=== PATIENT | female | born 1980 | race Caucasian/White ===

== ENCOUNTER 2021-03-21 08:36 | Emergency (ER) | payer OTHER ==
[~2021-03-21] VITALS: Ht 167.6 cm; Wt 99.8 kg
[~2021-03-21 08:36] MED LIST: PREDNISONE20 MG PO; PROVENTIL HFA6.7 GM INH
== END 2021-03-21 10:45 | disposition home or self-care (01) ==
LOC: ED 08:36
DX: S20.212A Contusion of left front wall of thorax, initial encounter (principal); S69.92XA Unspecified injury of left wrist, hand and finger(s), initial encounter; W01.198A Fall on same level from slipping, tripping and stumbling with subsequent striking against other object, initial encounter; F17.200 Nicotine dependence, unspecified, uncomplicated; Z88.2 Allergy status to sulfonamides; Z88.5 Allergy status to narcotic agent; Z88.8 Allergy status to other drugs, medicaments and biological substances
CPT/HCPCS: 71101; 84703; 99283-25

== ENCOUNTER 2021-06-06 13:20 | Emergency (ER) | payer OTHER ==
[~2021-06-06] VITALS: Ht 167.6 cm; Wt 99.8 kg
[2021-06-06] MEDS ORDERED: CEPHALEXIN500 M1 PO (15:32)
== END 2021-06-06 15:43 | disposition home or self-care (01) ==
LOC: ED 13:20
DX: L03.116 Cellulitis of left lower limb (principal); F17.200 Nicotine dependence, unspecified, uncomplicated; Z88.2 Allergy status to sulfonamides; Z88.5 Allergy status to narcotic agent
CPT/HCPCS: 80053; 85025; 93971; 96374; 99284-25; J0696; J7030

== ENCOUNTER 2021-06-21 17:57 | Inpatient (IN) | payer OTHER ==
[~2021-06-21] VITALS: Ht 167.6 cm; Wt 68.1 kg
[~2021-06-21 17:57] MED LIST changes: +CEPHALEXIN500 M1 PO
--- OUTSIDE RECORDS SUMMARY | 2021-06-21 18:04 | XMS ---
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 - 2 Visits in 30 Days CARE PROVIDERS There are no care providers on record at this time. Tru has no Care Guidelines for this patient. [facility] (12 MO.) [facility] NOTE: Visits indicate total known visits. ED/C VISIT TRACKING (12 MO.) 06/21/2021 17:[address] [facility] [place] TYPE: Emergency COMPLAINT: - LT FOOT PAIN 06/06/2021 13:21 [facility] [place] TYPE: Emergency COMPLAINT: - L ANKLE SWOLLEN HOT DIAGNOSES: - Cellulitis of left lower limb - Allergy status to sulfonamides - Local infection of the skin and subcutaneous tissue, unspecified - Allergy status to narcotic agent - Nicotine dependence, unspecified, uncomplicated 03/21/2021 08:37 [facility] [place] TYPE: Emergency COMPLAINT: - L WRIST PAIN DIAGNOSES: - Allergy status to narcotic agent - Contusion of left front wall of thorax, initial encounter - Unspecified injury of left wrist, hand and finger(s), initial encounter - Nicotine dependence, unspecified, uncomplicated - Allergy status to sulfonamides - Allergy status to other drugs, medicaments and biological substances - Pleurodynia - Fall on same level from slipping, tripping and stumbling with subsequent striking against other object, initial encounter INPATIENT VISIT TRACKING (12 MO.) No inpatient visits to display in this time frame [email or web address]
--- NOTE | 2021-06-22 00:20 | NUR ---
PATIENT ARRIVED TO THE FLOOR VIA STRETCHER. PATIENT WAS ABLE TO AMBULATE FROM SRETCHER TO BED WITH NO ASSISTANCE. PATIENTS LLE ELEVATED ON PILLOWS. PATIENTS REDNESS ON LLE WAS OUTLINED IN THE ED. PATIENTS ADMISSION COMPLETED. VITLAS TAKEN AND RECORDED. PATIENTS IV INFUSING PER ORDER. PATIENT RATES PAIN AT A 3/10, AND DENIES THE NEED FOR PAIN MEDICATION AT THIS TIME. CALL LIGHT IN REACH.
--- NOTE | 2021-06-22 00:56 | NUR ---
RECEIVED CALL FROM LAB. PATIENT IS COVID POSITIVE. PLACED PATIENT IN APPROPRIATE PRECAUTIONS. INFORMED PATIENT. PATIENT DENIES ANY QUESTIONS. SANDWICH PROVIDED. NO FURTHER NEEDS NOTED. CALL LIGHT IN REACH.
--- NOTE | 2021-06-22 01:36 | NUR ---
PATIENT ASSISTED TO THE RESTROOM A SBA. PATIENT WAS ABLE TO VOID. PATIENT IS BACK IN BED RESTING. PATIENT RATES PAIN AT A 2/10. PATIENT DENIES THE NEED FOR PAIN MEDICATION. PATIENT DENIES ANY FURTHER NEEDS. CALL LIGHT IN REACH.
--- NOTE | 2021-06-22 03:57 | NUR ---
PATIENT IS RESTING IN BED WITH EYES CLSOED, RR 18. CALL LIGHT IN REACH.
--- NOTE | 2021-06-22 05:13 | NUR ---
VITALS TAKEN AND RECORDED. INTAKE AND OUPUT RECORDED. IV INFUSING PER ORDER. ASSESMENT COMPLETED. PATIENT RATES PAIN AT A 2/10. PATIENT DENIES THE NEED FOR PAIN MEDICATION AT THIS TIME. CALL LIGHT IN REACH. NO FURTHER NEEDS NOTED. CALL LIGHT IN REACH.
--- NOTE | 2021-06-22 07:47 | NUR ---
CARE TRANSFER REPORT FROM MELISSA LANCASTER. PT ADMITTED LAST NIGHT. SHE TESTED POSITIVE FOR COVID, NOT SYMPTOMATIC. OPEN AREAS ON LEFT LEG AND RED AREA OUTLINED.
--- NOTE | 2021-06-22 08:59 | NUR ---
Vancomycin per pharmacy. Patient was given vancomycin 2000mg on admit, follow with 1250mg q 12 hrs. Pharmacy will determine timing and order trough level draw
--- NOTE | 2021-06-22 10:27 | NUR ---
PT AGREEABLE TO SHOWER AFTER BREAKFAST. PAIN IS TOLERABLE, TYLENOL PRN GIVEN TO MAINTAIN PAIN TOLERANCE FOR SHOWER ACTIVITY.
--- NOTE | 2021-06-22 11:30 | NUR ---
Spoke with Diana by phone as she is + for covid. She believes she had covid at the beginning of Jun as she lost her taste and smell at that time, but did not feel ill. She lives in an apartment with two of her children. She does not have a license. Her mom recently passed and left her a car, she is considering getting her starting gate driver's license. Gave her the phone number for [employer] transportation. Pt states it has been very painful to walk, she is not using any DME and unsure if she will need. I will follow up with her tomorrow. Pt plans on dc to home when cleared medically. Children are 10 and 15 and will assist her. I will change emergency contact as it is listed as her mom to her oldest daughter Kiara Vaughn [phone].
--- NOTE | 2021-06-22 11:51 | NUR ---
PATIENT UP TO SHOWER, THIS SUCTION DRUM DRIER OPERATOR IN ROOM FOR ASISTANCE. LINENS CHANGED, ANISHA GRIMES IN TO CLEANSE LEFT LEG WOUND. VITALS AND I&OS CHARTED. NO OTHER NEEDS AT THIS TIME
--- NOTE | 2021-06-22 13:06 | NUR ---
PT RESTING IN BED, NEW IV STARTED BY CONY LANCASTER. NO NEW ISSUES. FINISHED SHOWER NEW DRESSINGS TO LLE AFTER ABX SOAP WASH.
--- NOTE | 2021-06-22 14:11 | NUR ---
Patient has not recieved lunch yet and is getting her lunch ordered now independently. Vitals and I&Os are done. Call light is in reach and IV has stopped. RN has been notified.
--- NOTE | 2021-06-22 14:30 | NUR ---
PT REQUEST RIGHT AC IV TO BE REMOVED IT IS UNCOMFORTABLE IN THE BEND OF ARM. IV REMOVED WNL NO ISSUES. PT SITTING UP IN BED FINISHED EATING LUNCH. AFTERNOON ASSESSMENT COMPLETE.
--- NOTE | 2021-06-22 15:53 | NUR ---
LLE, GREAT IMPROVEMENT OVER THIS LAST SHIFT, REDNESS RECEDING FROM OUTLINE, AND REDNESS MORE LIGHT NOW IN COMPARISON FROM THIS AM. PT ADMINISTERED TYLENOL FOR PAIN AVAILABLE
--- NOTE | 2021-06-22 18:39 | NUR ---
LLE IMPROVED OVER SHIFT, REDNESS RECEDING AND LESS RED. DARKENS WHEN SHE STANDS. TYLENOL PRN OVER SHIFT FOR PAIN, TORDOL AVAILABLE FOR TONIGHT. SHE HAS HAD SHOWER, WITH ABX SOAP CLEANS TO LLE. SHE HAS HAD GOOD APPETITE AND HAS BEEN AFEBRILE. CULTURE PENDING FROM LLE WOUND TAKEN IN E.D., MRSA NASAL SWAB PENDING FROM THIS AM. POSSIBLE DISCHARGE TOMORROW PER
--- NOTE | 2021-06-22 19:59 | NUR ---
RECEIVED REPORT FROM DAY SHIFT RN. PATIENT IS RESTING IN BED WATCHING TV. NO NEEDS NOTED. CALL LIGHT IN REACH.
--- NOTE | 2021-06-22 22:17 | NUR ---
PATIENT ASSISTED TO THE RESTROOM A SBA. PATIENT WAS ABLE TO VOID. PATIENT IS BACK IN BED RESTING. PATIENTS LLE ELEVATED ON A PILLOW. REDNESS IN LLE HAS IMPROVED. PATIENTS LLE IS ONLY WARM TO THE TOUCH NOT HOT LIKE PREVIOUS SHIFT. PATIENT RATES PAIN AT A 5/10 AND DESCRIBES IT AN "ACHE". PATIENTS SCHEDULED MEDICATIONS GIVEN PER ORDER. IV INFUSING PER ORDER. VITALS TAKEN AND RECORDED. INTAKE AND OUTPUT RECORDED. PATIENT DENIES ANY FURTHER NEEDS. CALL LIGHT IN REACH.
--- NOTE | 2021-06-22 22:32 | NUR ---
PATIENT PROVIDED WITH SANDWICH BOX. PATIENT DENIES ANY FURTHER NEEDS. CALL LIGHT IN REACH.
--- NOTE | 2021-06-22 23:36 | NUR ---
PATIENTS WATER REFILLED. PATIENT DENIES ANY NEEDS. CALL LIGHT IN REACH.
--- NOTE | 2021-06-23 02:15 | NUR ---
IN TO ASSIST PT TO THE TOILET, SBA WITH IV POLE, PT BACK TO BED, NO FURTHER NEEDS AT THIS TIME
--- NOTE | 2021-06-23 03:22 | NUR ---
PATIENT GIVEN PRN TYLENOL PER ORDER FOR AN "ACHE" IN HER LLE. LLE REMAINS ELEVATED ON A PILLOW. FRESH ICE WATER PROVIDED. PATIENT DENIES ANY FURTHER NEEDS. CALL LIGHT IN REACH.
--- NOTE | 2021-06-23 05:39 | NUR ---
PATIENTS BLOOD DRAWN AND SENT TO LAB. VITALS TAKEN AND RECORDED. INTKAE AND OUTPUT RECORDED. PATIENT DENIES ANY PAIN AT THIS TIME. PATIENT DENIES ANY FURTHER NEEDS. CALL LIGHT IN REACH.
--- NOTE | 2021-06-23 07:45 | NUR ---
REPORT RECEIVED. PT IN BED WITH EYES CLOSED. RESPIRATIONS EQUAL AND NONLABORED. CALL LIGHT IN REACH.
--- NOTE | 2021-06-23 09:22 | NUR ---
MED REC COMPLETE
--- NOTE | 2021-06-23 09:48 | NUR ---
PATIENT SITTING UP IN BED WATCHING TV, BREAKFAST AT BESIDE. VITALS AND I&O'S CHARTED. PATIENT SAID SHOWER MAYBE LATER, WILL CHECK BACK IN. CALL LIGHT IN REACH. NO FURTHER NEEDS AT THIS TIME.
--- NOTE | 2021-06-23 10:48 | NUR ---
ASSESSMENT COMPLETED. PT SITTING IN BED WATCHING TV. DENIES PAIN AT THIS TIME. CALL LIGHT IN REACH.
--- NOTE | 2021-06-23 13:41 | NUR ---
ROUNDED ON PT. WASH DONT TO LEFT LOWER EXTREMITIY. ALLEVYNS PLACED ON THREE UCLERS. REDNESS IS DECREASING. LOTION APPLIEDTO REST OF LEG. PT TOLERATED WELL. CALL LIGHT IN REACH.
--- NOTE | 2021-06-23 14:25 | NUR ---
PATIENT IN BED RESTING AND WATCHING TV. VITALS AND I&O'S CHARTED. CALL LIGHT IN REACH. NO FURTHER NEEDS AT THIS TIME.
--- NOTE | 2021-06-23 14:58 | NUR ---
LAB CALLED THIS AM IN REGARDS TO CULTURES, NO FAX, CALLED AT THIS TIME, INFORMED THAT STILL PENDING AT THIS TIME.
--- NOTE | 2021-06-23 17:26 | NUR ---
IV INFILTRATED WITH 5 ML OF VANCOMYCIN. IV DC'D AND REPLACED IN RIGHT FOREARM. HEAT PACK PROVIDED TO SITE. CALL LIGHT IN REACH.
--- NOTE | 2021-06-23 18:18 | NUR ---
IN TO ASSESS ARM. SWELLING DECREASING, NO WARMTH PRESENT. ICE PACK PROVIDED. DENEIS FURTHER NEEDS.
--- NOTE | 2021-06-23 18:23 | NUR ---
PATIENT SITTING UP IN BED PLAYING ON PHONE. VITALS AND I&O'S CHARTED. CALL LIGHT IN REACH. NO FURTHER NEEDS AT THIS TIME.
--- NOTE | 2021-06-23 19:36 | NUR ---
RECEIVED REPORT FROM DAY SHIFT RN. PATIENT IS RESTING IN BED WATCHING TV. PATIENT DENIES ANY NEEDS. CALL LIGHT IN REACH.
--- NOTE | 2021-06-23 21:04 | NUR ---
PATIENT ASSESMENT COMPLETED. VITALS TAKEN AND RECORDED. INTAKE AND OUPUT RECORDED. PATIENT HAD A BM. PATIENT REPORTS A 3/10 PAIN IN HER LLE. PATIENT DENIES THE NEED FOR PAIN MEDICATION AT THIS TIME. PATIENTS SCHEDULED MEDICATIONS GIVEN PER ORDER. PATIENT DENIES ANY FURTHER NEEDS. IV INFUSING PER ORDER. CALL LIGHT AND BELONGINGS ARE WITHIN REACH.
--- NOTE | 2021-06-24 00:07 | NUR ---
PATIENT IS RESTING IN BED WATCHING TV. PATIENT DENIES ANY NEEDS. CALL LIGHT IN REACH.
--- NOTE | 2021-06-24 00:54 | NUR ---
PATIENTS HAT EMPTIED. PATIENT IS RESTING IN BED EATING A SNACK. PATIENT DENIES ANY PAIN. PATIENT DENIES ANY NEEDS. CALL LIGHT IN REACH.
--- NOTE | 2021-06-24 02:55 | NUR ---
PATIENTS BANDAGES CHANGED ON LLE X3. PATIENT RATES PAIN AT A 2/10. PATIENT DENIES THE NEED FOR PAIN MEDICATION AT THIS TIME. IV INFUSING PER ORDER. PATIENT DENIES ANY FURTHER NEEDS. CALL LIGHT IN REACH.
--- NOTE | 2021-06-24 06:24 | NUR ---
VITALS TAKEN AND RECORDED. INTAKE AND OUPUT RECORDED. SCHEDULED MEDICATIONS GIVEN PER ORDER. PATIENT DENIES ANY PAIN. PATIENTS IV INFUSING PER ORDER. NO NEEDS NOTED. CALL LIGHT IN REACH.
--- NOTE | 2021-06-24 07:27 | NUR ---
REPORT RECEIVED. PT ON AIRBORN PRECAUTIONS. PT NOT DISTURBED.
[2021-06-24] MEDS ORDERED: DOXYCYCLINE HY100 MG PO (09:33)
--- NOTE | 2021-06-24 09:43 | NUR ---
Vitals, I&Os are comeplete. Call light in reach.
[2021-06-24] MEDS ORDERED: NICOTINE PATCH1 EACH TD (09:50)
--- NOTE | 2021-06-24 10:00 | NUR ---
ASSESSMENT COMPLETED. DR TOBAR AND PLANNED FOPR DISCHARGE. PT STILL WITH NO SYMPTOMS OF COVID. LEFT LEG IMPROVING. PT WILL WASH LEG WHEN HOME PER HER REQUEST. ULCERS IMROVING IN APPEARANCE. REDNESS DECREASING. NO HEAT. PAIN WELL MANANGED. PT WITH NO CONCERNS. ORAL ANTIBIOTIC ADMISNTERED. ALL QUESTIONS ANSWERED. IV DC'D AND WNL. PT TOLD TO MINITOR OLD IV SITES. VITALS TAKEN AND STABLE. PT WHEELED OUT BACK TO MEET RIDE.
--- NOTE | 2021-06-24 10:19 | NUR ---
EVELYN FOSTER CALL TO CONFIRM PT NICCOTINE PATCH DOSE TO BE 14MG.
== END 2021-06-24 10:45 | disposition home or self-care (01) | DRG 602 ==
LOC: ED 17:57 → MS 23:27
PROVIDERS: ADMIT Internal Medicine; ATTEND Internal Medicine
PROC: 0H9LXZZ Drainage of Left Lower Leg Skin, External Approach (ICD-10-PCS; principal; 2021-06-21)
DX: L03.116 Cellulitis of left lower limb (principal); U07.1 COVID-19; D50.9 Iron deficiency anemia, unspecified; M32.9 Systemic lupus erythematosus, unspecified; I10 Essential (primary) hypertension; F17.290 Nicotine dependence, other tobacco product, uncomplicated; F12.90 Cannabis use, unspecified, uncomplicated; Z71.6 Tobacco abuse counseling; Z88.2 Allergy status to sulfonamides; Z88.5 Allergy status to narcotic agent; Z88.8 Allergy status to other drugs, medicaments and biological substances; Z98.890 Other specified postprocedural states
CPT/HCPCS: 10060; 80048; 80053; 80202; 80500; 83605; 85025; 99284-25; A9270; C9803; J1650; J1885; J2270; J2405; J3370; J7060; J7121; U0003

== ENCOUNTER 2022-04-04 15:55 | Inpatient (IN) | payer OTHER ==
[~2022-04-04] VITALS: Ht 167.6 cm; Wt 86.5 kg
[~2022-04-04 15:55] MED LIST changes: +DOXYCYCLINE HY100 MG PO; +NICOTINE PATCH1 EACH TD
--- OUTSIDE RECORDS SUMMARY | 2022-04-04 16:02 | XMS ---
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 Tru has no Care Guidelines for this patient. Mendel VISIT COUNT (12 MO.) 3 [facility] TOTAL 3 NOTE: Visits indicate total known visits. ED/C VISIT TRACKING (12 MO.) 04/04/2022 15:55 [facility] [place] TYPE: Emergency COMPLAINT: - WEAKNESS 06/21/2021 17:58 [facility] [place] TYPE: Emergency COMPLAINT: - LT FOOT PAIN/NON INJ 06/06/2021 13:21 [facility] [place] TYPE: Emergency COMPLAINT: - L ANKLE SWOLLEN HOT DIAGNOSES: - Cellulitis of left lower limb - Allergy status to sulfonamides - Local infection of the skin and subcutaneous tissue, unspecified - Allergy status to narcotic agent - Nicotine dependence, unspecified, uncomplicated INPATIENT VISIT TRACKING (12 MO.) 06/21/2021 23:27 [facility] [place] TYPE: Medical Surgical COMPLAINT: - CELLULITIS DIAGNOSES: - Tobacco abuse counseling - Systemic lupus erythematosus, unspecified - Tobacco abuse counseling - Allergy status to other drugs, medicaments and biological substances - Allergy status to narcotic agent - Other specified postprocedural states - Allergy status to other drugs, medicaments and biological substances - Allergy status to narcotic agent - Cannabis use, unspecified, uncomplicated - Systemic lupus erythematosus, unspecified - Essential (primary) hypertension - Cellulitis of left lower limb - Essential (primary) hypertension - Nicotine dependence, other tobacco product, uncomplicated - Nicotine dependence, other tobacco product, uncomplicated - COVID-19 - Iron deficiency anemia, unspecified - Allergy status to sulfonamides - Cannabis use, unspecified, uncomplicated - Other specified postprocedural states - Iron deficiency anemia, unspecified - Allergy status to sulfonamides - COVID-19 - Cutaneous abscess of left lower limb [email or web address]
[2022-04-04] MEDS ORDERED: ONDANSETRON ODT8 MG PO (19:29)
--- NOTE | 2022-04-04 21:48 | NUR ---
RECEIVED REPORT FROM LINNETTE LANCASTER. THIS RN WILL TRANSPORT TO FLOOR. pt DENIES PAIN AND NAUSEA.
--- NOTE | 2022-04-04 22:15 | NUR ---
pt BROUGHT TO FLOOR VIA STRETCHER, AMBULATED TO BATHROOM INDEPENDENTLY, VOIDED. RESTING IN BED. ASSESSMENT DONE. pt DROWSY, ORIENTED ALERT WHEN MAKING REQUESTS. DOES NOT PROVIDE A LOT OF DETAIL WITH ANSWERS TO ADMISSION QUESTIONS. "I JUST WANT TO SLEEP" ADMISSION COMPLETED. MEDICATIONS INFUSING PER ORDERS. CALL LIGHT WITHIN REACH. ORIENTED TO ROOM AND FLOOR.
--- NOTE | 2022-04-05 00:15 | NUR ---
IV FLUID MIXED BY PARTY BUS DRIVER, IN TO HANG. pt RESTING IN BED. PUDDING CONSUMED. EYES CLOSED, RESPIRATIONS REGULAR AND UNLABORED. CALL LIGHT WITHIN REACH.
--- NOTE | 2022-04-05 02:09 | NUR ---
IN TO DO VITALS. pt WOKE TO VOICE. REPORTED PAIN IS 4/10. pt IS DIAPHORETIC, FRESH LINENS. VITALS AND I&O RECORDED. FRESH WATER. NO FURTHER REQUESTS AT THIS TIME. CALL LIGHT WITHIN REACH.
--- NOTE | 2022-04-05 04:34 | NUR ---
ROUNDED ON pt. RESTING IN BED WITH EYES CLOSED, RESPIRATIONS REGULAR AND UNLABORED. CALL LIGHT WTIHIN REACH.
--- NOTE | 2022-04-05 04:56 | NUR ---
CALL LIGHT ON. pt REQUESTED MORE WATER. PROVIDED. ASSESSMENT DONE. NO CHANGES. pt REPORTS PAIN, WILL GIVE MEDICATION WHEN AVAILABLE. EDUCATION DONE. OFFERED WARM OR COOL THERAPIES, pt DECLINED. VITALS AND I&O RECORDED. BATHROOM SMELLED STRONGLY OF CIGARETTE SMOKE, pt DENIES SMOKING HERE. STATES THAT THE NICOTINE PATCH "IS WORKING" AND DECLINED LOZENGE. LAB IN TO DRAW. pt RESTING IN BED, PROVIDED WITH FOOD. CALL LIGHT WITHIN REACH.
--- NOTE | 2022-04-05 05:13 | NUR ---
PRN PAIN MED GIVEN (SEE MAR).
--- NOTE | 2022-04-05 07:00 | NUR ---
REPORT RECIEVED. PT IN BED WATCHING TV. DENEIS PAIN OR NAUSEA AT THIS TIME. CALL LIGHT IN REACH.
--- NOTE | 2022-04-05 08:36 | NUR ---
ASSESSMENT COMPLETED. PT REPORTING 7/10 PAIN. HEAT PACK PROVIDED. PAIN IS IN FLANK AREA. PT HAS MINIMAL INTERACTIONS. ANSWERS YES/NO QUESTIONS. PT ATE 50% OF BREAKFAST. BATHROOM SMELLED LIKE CIGARETTE SMOKE. PT CONFRONTED AND ADMITTED TO SMOKING IN BATHROOM. PT EDUCATED ON DANGER OF SMOKING IN HOSPITAL. CIGARETTES TAKEN AND TIED UP IN BAG. LOZENGE OFFERED AND REFUSED. LEG IS NOT RED OR SWOLLEN. PT DENIES PAIN IN LEG. NO HEAT PRESENT. LUNGS CLEAR.
--- NOTE | 2022-04-05 09:12 | NUR ---
PT LAYING IN BED WATCHING TV. CALL LIGHT WITHIN REACH NO FURTHER TAKS AT THIS TIME
--- NOTE | 2022-04-05 09:16 | NUR ---
FLUIDS COMPLETED. PT SALINE LOCKED.
--- NOTE | 2022-04-05 09:27 | NUR ---
PT FOUND IN BATHROOM WITH BAG RIPPED OPEN. NO SIGN OF SMOKING IN BATHROOM BUT CIAGERETES WERE CONFISCATED AND PLACED IN SAFE.
--- NOTE | 2022-04-05 10:00 | NUR ---
Spoke with Diana. She states she currently lives in an apartment with her 11 and 16 yo. 24 yo daughter assists her as needed and also drives her. PT has multiple steps to get to her apartment, but denies issues getting in or out. Pt states she is currently not working. Plans on dc to home when cleared medically.
--- NOTE | 2022-04-05 11:45 | NUR ---
PT REPORTING PAIN 04/09. PT ALSO REPORTING SHE JUST HAD EMESIS IN TOILET. ZOFRAN ADMISNTERED FOR SOME RESIDUAL NASUEA. DR COYLE NOTIFIED FOR NEW PAIN MED ORDER. TORIDOL ORDERED AND ADMISNTERED. NEW FLUID ORDER SARTED. PT LEFT TO REST. CALL LIGHT IN REACH.
--- NOTE | 2022-04-05 12:50 | NUR ---
ANISHA CABA REQUESTED I NOT DISTURB PT AT THIS TIME. WILL FOLLOW
--- NOTE | 2022-04-05 13:37 | NUR ---
ROUNDED ON PT. IV AITE ASSESSED AND WNL. PT RESTING IN BED WITH EYES CLOSED. WAKES TO VERBAL STIMULI. PAIN REPORTING AT 3/10 NOW. CALL LIGHT IN REACH. DENEIS NEEDS.
--- NOTE | 2022-04-05 14:15 | NUR ---
ROUNDED WITH DR COYLE. POC DISCUSSED. PT REPORTS SHE WOULD LIKE TO LEAVE BECAUSE SHE WANTS TO SMOKE A CIGAERETTE. INCREASED NICOTINE PATCH TO 21MG. PROVIDED WARM BLANKET. WILL CONTINUE TO ENCOURAGE OT TO STAY. DR COYLE INFORMED. PT AGREES TO WAIT AND SEE IF NICTINE PATCH WILL HELP. PT RESIGN IN BED NOW.
--- NOTE | 2022-04-05 16:00 | NUR ---
rounded on pt. pt sleeping. iv infusing wnl. denies needs. call light in reach.
--- NOTE | 2022-04-05 18:18 | NUR ---
ROUNDED ON PT. IV WNL. PT UP TO BATHROOM. PT ASKED WHEN ANTIBIOTIC WITH BE GIVEN. TOLD PT TIME AND PT STATES SHE WILL LEAVE AFTER ANTIBIOTIC DOSE IS GIVEN. DR COYLE NOTIFIED.
--- NOTE | 2022-04-05 18:54 | NUR ---
SCREAMS HEARD COMING FROM ROOM. ALL STAFF TO BEDSIDE. PT FOUND GETTING UP OFF GROUND. PT REPROTS SHE WAS RUSHING OUT OF THE BATHROOM AFTER SHOWERING TO ANSWER PHONE CALL FROM EX BOYFRIEND. PT REPRORTS SHE SLIPPED AND FELL TO HER KNEES THEN TO HER HANDS. SHE REPORTS HEARING A POP IN HER LEFT WRIST. PT GOT SELF OFF GROUNG. STAFF ASSISTED IN DRYING AND GETTING DRESSED. PT SAT IN BED. DR COYLE NOTIFIED. ORDERS PLACED FOR WRIST XRAY. IMAGING AT BEDSIDE NOW.
--- NOTE | 2022-04-05 19:22 | NUR ---
Pt up to br, irritable mood. on room air
--- NOTE | 2022-04-05 19:44 | NUR ---
pt back in bed. on room air, coop with assessments, lungs dim at bases, ice to l wrist, area above wrist edematous, tender, no bruising noted at this time, moves fingers well and raises arm. irritable, staed she is leaving at 2029 reagrless as she wants to go home and smoke, situation explained to pt, not receptvei. Medicated with toradol 15mg IV pain 10/10 L wrist.ice to wrist declines to elevate with pillows. will notify md. ivf infusing, declines enoxaparin. Bed alarm on fall precautions.
--- NOTE | 2022-04-05 19:52 | NUR ---
Dr Shelton notified via phone about pt wanting to go AMA, that IV abx was started an hour earlier at pts request. decline enoxaparin. medicated with Toradol per L wrist pain. ice to area, does not eant to eait for XR results. "OK if she want to go, make her sign AMA form, and I will send prescription meds to her RX"
--- NOTE | 2022-04-05 20:30 | NUR ---
Dr Shelton in room atalking to pt explained contraindications of leaving AMA withouot having xr resport back, assess L wrist. Pt semi cooperative pt stated "I dont know I may still want to go home tonight, I have a dog at home and nobody to take care of him ", as soon as MD left the room she turned around and told me " Joby ready to go. Dr Shelton notified
[2022-04-05] MEDS ORDERED: CELECOXIB200 MG PO (20:33)
[2022-04-05] MEDS ORDERED: CEFPODOXIME PR200 MG PO (20:34)
--- NOTE | 2022-04-05 20:43 | NUR ---
iv dc'd RAC intact, 2x2 in place, pt very restless slight agitaion present. took K 40mEq tabs, Rx given, not resceptive to infromation being given. ted wrap applied to L wrist. tender. dc home via w/c under AMA. alert and oriented
== END 2022-04-05 20:46 | disposition left against medical advice (07) | DRG 690 ==
LOC: ED 15:55 → MS 21:38
PROVIDERS: ADMIT Internal Medicine; ATTEND Internal Medicine
DX: N10 Acute pyelonephritis (principal); L03.116 Cellulitis of left lower limb; E87.6 Hypokalemia; S69.92XA Unspecified injury of left wrist, hand and finger(s), initial encounter; I73.9 Peripheral vascular disease, unspecified; F17.210 Nicotine dependence, cigarettes, uncomplicated; Z20.822 Contact with and (suspected) exposure to COVID-19; I10 Essential (primary) hypertension; D50.9 Iron deficiency anemia, unspecified; Z53.29 Procedure and treatment not carried out because of patient's decision for other reasons; R63.8 Other symptoms and signs concerning food and fluid intake; Z98.890 Other specified postprocedural states; Z88.2 Allergy status to sulfonamides; Z88.5 Allergy status to narcotic agent; Z79.51 Long term (current) use of inhaled steroids; Z88.8 Allergy status to other drugs, medicaments and biological substances; Z79.899 Other long term (current) drug therapy; W19.XXXA Unspecified fall, initial encounter
CPT/HCPCS: 36415; 73110; 80048; 80053; 81001; 82607; 82728; 82746; 83540; 83550; 83735; 85025; 85060; 87088; 87502; 96361; 96365; 96366; 96375; 99285-25; A9270; C9113; C9803; J0696; J1650; J1885; J2405; J3475; J3480; J7030; J7120; J7121; U0003